=== PATIENT | male | born 1990 | race Caucasian/White ===

== ENCOUNTER 2016-09-28 08:01 | Day surgery (SDC) | payer OTHER ==
[2016-09-22 18:10] VITALS: BMI 34.7
--- NOTE | 2016-09-27 20:11 | PREOP ---
DATE OF ADMISSION: 09/28/2016 DATE OF SURGERY: 09/28/2016 ADMISSION DIAGNOSIS: Chronic tonsillitis, Sydenham's chorea, obstructive sleep apnea syndrome, nasal septal deviation, inferior turbinate hypertrophy. HISTORY OF PRESENT ILLNESS: This 25-year-old male has had nasal obstruction and snoring as well as allergies. He has had witnessed apnea as well as excessive fatigue and nasal obstruction. He wakes tired and is tired in the day. He also has bilateral nasal obstruction which fluctuates, especially with his allergy symptoms. He also has a history of recurrent sore throats. His exam demonstrates deviation of the nasal septum, inferior turbinate hypertrophy right greater than left, as well as moderately enlarged tonsils. More recently he exhibited neurologic symptoms and neurologic evaluation is consistent with Sydenham's chorea. It is strongly felt that tonsillectomy will best treat this condition. He is now admitted for tonsillectomy as well as nasal septoplasty and inferior turbinate surgery. PAST MEDICAL HISTORY: Primary medical doctor is Dr. Leona Mahan. Patient does have a history of asthma as well as allergies and Sydenham's chorea. He does not smoke. ALLERGIES TO MEDICATIONS: None known. Present medications include cetirizine and fluticasone. He has undergone anesthesia in the past without reported problems. EXAMINATION: The patient is a well-developed male in no distress. Head is normal. Eyes are clear. Ears unremarkable. The nose has deviation of the nasal septum. There is moderate inferior turbinate hypertrophy. There is also moderate enlargement of the tonsils. Neck is unremarkable. DATA: Preoperative labs are pending. IMPRESSION: Obstructive sleep apnea syndrome, chronic tonsillitis, Sydenham's chorea, deviation of the septum, and inferior turbinate hypertrophy. PLAN: Tonsillectomy, possible UPPP, nasal septoplasty and submucous resection of inferior turbinates, with overnight observation postoperatively. INFORMED CONSENT: The patient understands the indications, alternatives, nature, risks and benefits of the proposed surgery, potential complications including but not limited to anesthesia, bleeding, infection, recurrence, voice change, nasal regurgitation, numbness, hole in the septum, reduced sense of smell, eye injury or brain injury were discussed in detail. He understands and accepts these risks and wishes to proceed with surgery. Questions are answered fully. MARIANA BATRES M.D. [id number]
[~2016-09-28 08:01] MED LIST: ceFAZolin SODIUM 1 GM VIAL IVPB ONE
[2016-09-28] MEDS ORDERED: LIDOCAINE 1%/EPI 1:100000 (50 ML MULTI DOSE VIAL) ONE (08:29)
[2016-09-28] MEDS ORDERED: COCAINE HCL 4% TOPICAL SOLUTION 4 ML BOTTLE TP ONE ×2 (08:47→09:22)
--- NOTE | 2016-09-28 08:49 | HP ---
History & Physical Update - History History: No Change - Physical Physical: No Change - Assessment Assessment: No Change - Plan Plan: No Change
[2016-09-28] MEDS ORDERED: ACETAMINOPHEN INJECTION 100 ML IVPB ONE (09:03)
[2016-09-28] MEDS ORDERED: ceFAZolin SODIUM 1 GM VIAL IVPB ONE (09:15)
[2016-09-28] MEDS ORDERED: LIDOCAINE 1%/EPI 1:100000 (50 ML MULTI DOSE VIAL) INF ONE ×2 (09:22)
[2016-09-28] MEDS ORDERED: BUPIVACAINE HCL/PF 0.25% (2.5MG/ML) 10 ML VIAL IJ ONE ×2 (10:25)
--- NOTE | 2016-09-28 11:23 | OP ---
Operative Note - Note: Operative Date: 09/28/16 (10211) Pre-Operative Diagnosis: deviated nasal septum, inferior turbinate hypertrophy, chronic tonsillitis, Sydenham's chorea, adenoid hypertrophy (mild) obstructive sleep apnea Operation: nasal septoplasty, right SMR inferior turbinate, left inferior turbinate outfracture and cauterization, destruction of adenoid tissue, tonsillectomy, pharyngoplasty Findings: nasal septal deviation to left, cartilaginous, inferior turbinate hypertrophy right greater than left, mild to moderate adenoid hypertrophy, chronic hypertrophic tonsillitis, right tonsil more embedded with moderate peritonsillar scarring, uvula elongated with mildly bifid tip, significant vertical banding of posterior pharyngeal wall, resolved with pharyngeal sutures. Post-Operative Diagnosis: Same as Pre-op Surgeon: Sundeep Aquino Anesthesiologist/DAM ATTENDANT: Lars Giron Anesthesia: General Specimens Removed: nasal septum, right inferior turbinate, right tonsil, left tonsil. Estimated Blood Loss (mls): 50 Blood Volume Replaced (mls): 0 Fluid Volume Replaced (mls): 700 Operative Report Dictated: Yes
[2016-09-28] MEDS ORDERED: ONDANSETRON 4 MG/2 ML VIAL IVPUSH PRN (11:39)
[2016-09-28] MEDS ORDERED: PROMETHAZINE HCL 25 MG/1 ML VIAL IVPUSH PRN (11:39)
[2016-09-28] MEDS ORDERED: TRIMETHOBENZAMIDE HCL 200MG/2ML INJ IM PRN (11:40)
[2016-09-28] MEDS ORDERED: LACTATED RINGERS SOLUTION 1,000 ML IV SCH (11:45)
[2016-09-28] MEDS ORDERED: morphine CARPU-JECT 4 MG/1 ML DISP.SYRIN IVPB PRN (12:50)
--- NOTE | 2016-09-28 14:06 | OP ---
DATE OF OPERATION: 09/28/2016 PREOPERATIVE DIAGNOSES: Deviated nasal septum, inferior turbinate hypertrophy, chronic tonsillitis, Sydenham chorea, mild adenoid hypertrophy, obstructive sleep apnea. POSTOPERATIVE DIAGNOSES: Deviated nasal septum, inferior turbinate hypertrophy, chronic tonsillitis, Sydenham chorea, mild adenoid hypertrophy, obstructive sleep apnea. PROCEDURE PERFORMED: Nasal septoplasty, submucous resection of right inferior turbinate, left inferior turbinate outfracture and cauterization, destruction of adenoid tissue, tonsillectomy, pharyngoplasty. SURGEON: Mariana Aquino MD ANESTHESIOLOGIST: Lars Giron MD ANESTHESIA: General via endotracheal tube. INDICATIONS: This 26-year-old male has had chronic nasal obstruction as well as witnessed apnea during sleep. He has also had recurrent tonsillitis and has neurologic symptoms which have been determined to represent Sydenham chorea, a consequence of recurrent infections. Examination demonstrates deviation of the septum to the left, inferior turbinate hypertrophy, right greater than left, as well as evidence of chronic tonsillitis and a narrow oropharynx. He is now brought to surgery for treatment. FINDINGS: Deviated septum to the left, primarily cartilaginous; bilateral inferior turbinate hypertrophy, right greater than left; mild adenoid hypertrophy; chronic hypertrophic tonsillitis with narrowing of the pharynx. DESCRIPTION OF PROCEDURE: The patient was brought to the operating room and placed on the operating table in the supine position. General endotracheal anesthesia was induced to a satisfactory level. He was prepped and draped in the usual fashion for surgery. The nose was inspected and deviation of the septum to the left was identified. Lidocaine 1% with epinephrine 1:100,000 was infiltrated into the nasal septum. Cocaine 4% was placed topically on pledgets within the nasal cavities. The pledgets were removed. A right nasal septal incision was created with a 15 blade. A right mucoperichondrial flap was elevated. The bony cartilaginous junction was identified and and limited bilateral mucoperiosteal flaps were elevated. There was an acute angulation of the inferior septum. This was incised with the [place] cartilage knife and the inferior cartilage excised. Additional cartilage was also excised more anteriorly. Limited bone was then removed posteriorly. After these maneuvers, the nasal septum returned to a more midline position. Cartilage was reshaped and then replaced in the pocket and the incision was closed using interrupted 4-0 chromic sutures. A [id number] quilting suture was also placed. The inferior turbinates were then injected with lidocaine 1% with epinephrine 1:100,000. The right inferior turbinate was incised and the bony hypertrophy was identified. This was dissected in a submucous fashion. The remaining turbinate was then cauterized submucosally and the incision was closed with 4-0 chromic. Outfracture was performed more posteriorly. The left inferior turbinate had mild, primarily soft tissue hypertrophy and therapeutic outfracture was performed. Mural cauterization was performed with the suction cautery. After these maneuvers, significantly improved nasal airways were identified and the nasopharynx could be visualized by anterior rhinoscopy bilaterally. Mild adenoid hypertrophy was identified. The suction cautery was passed transnasally on each side and adenoid tissue was destroyed using electrocauterization. This resulted in shrinkage and improvement in the airway bilaterally. Attention was then turned toward the tonsils. The patient's neck was extended. A McIvor mouth gag with a ring blade was inserted and the oropharynx was exposed. Marcaine 0.25% plain was infiltrated in the peritonsillar regions. Chronic hypertrophic tonsillitis was seen. The left tonsil was more prominent. The right tonsil was also enlarged but was deeper in position. The uvula was elongated with a slightly bifid tip. There was no submucous cleft palate. A hypopharyngeal pack was placed. The right tonsil was treated first. An Allis clamp was used to draw the superior pole out of the pocket between the anterior and posterior tonsillar pillars. The mucosa was incised with the Coblation device and the peritonsillar plane entered. Careful Coblation dissection upon the capsule of the tonsil allowed eventual removal of tonsil from its surrounding tissue. Moderate scarring was encountered. Hemostasis was achieved with bipolar cauterization. Attention was then turned to the left tonsil. This was grasped with the Allis clamp. The superior pole was drawn out. The anterior pillar was incised and the peritonsillar plane entered. Coblation dissection upon the capsule of the tonsil allowed easier removal of the left tonsil from its surrounding tissue. Hemostasis was achieved with bipolar cauterization. Both tonsillar fossae were inspected and hemostasis was excellent. There was some vertical banding of the posterior pharyngeal wall related to excessively loose pharyngeal tissue. This was addressed by suturing the tonsillar pillars together utilizing interrupted 2-0 Vicryl sutures. This was performed bilaterally and eliminated the vertical banding. A hypopharyngeal pack was placed. Hemostasis was excellent. Folded Telfa gauze coated with antibiotic ointment and joined anteriorly with heavy silk suture was placed within the nasal cavities. The mouth gag was removed. The patient was then awakened from general anesthesia and transferred to the PACU in stable condition. Estimated blood loss was less than 50 mL. He received crystalloid at the end of the procedure. Specimens included: 1. Nasal septum. 2. Right inferior turbinate tissue. 3. Right tonsil. 4. Left tonsil. These were all sent to Pathology for routine studies. There were no complications. MARIANA AQUINO M.D. [id number]
--- NOTE | 2016-09-28 20:18 | PN ---
Progress Note (short form) - Note Progress Note: ENT Post op check awake alert, taking some liquids has voided, has been OOB ambulating VSS NAD nasal packing in place, no bleeding oropharynx suture lines intact, no bleeding, airway adequate voice hyponasal no stridor or respiratory distress Impression: stable s/p nasal and tonsil surgery DIANA Plan; overnight observation with SaO2 monitoring O2 prn advance diet as tolerated clear to full liquids reassess in AM if no bleeding, then remove packing, assess for discharge in AM Sundeep Aquino MD
[2016-09-28] MEDS: oxyCODONE HCL 5 MG TABLET PO PRN (20:34)
--- NOTE | 2016-09-29 08:12 | PN ---
Progress Note (short form) - Note Progress Note: ENT POD 1 awake alert, taking fluids required analgesia oxycodone tablet x 1 c/o throat pain with swallowing, c/o nasal obstruction overnight had O2 desaturation to 82% on room air rx O2 supplementation VSS NAD eyes WNL nose packing in place, pack removed, no bleeding septum intact, no hematoma, airways patent, improved mouth normal pharynx no bleeding, suture lines intact, uvula edema Impression: s/p tonsillectomy, pharyngoplasty, septoplasty, inferior turbinate surgery, adenoid destruction hx DIANA, Sydenham's chorea O2 desaturation last night, expect improvement after removal of nasal packing Plan: observe, diet and activity as tolerated monitor O2 saturation this morning, including a nap if remains well on room air then OK for discharge when meets discharge criteria ' F/U in office scheduled Sundeep Aquino MD
[2016-09-29] MEDS: oxyCODONE HCL 5 MG TABLET PO PRN (08:56)
[2016-09-29 11:48] VITALS: BP 118/65; PULSE 74; TEMP 98.4
--- NOTE | 2016-09-30 12:52 | PATH ---
Surgical Pathology Report Patient Name: JONATHON ROSS [facility]. Rec. #: [id number] /Age/Gender: 1990 (Age: 26) / M Account: [id number] Location: AMBULATORY SURG Taken: 09/28/2016 Received: 09/28/2016 Reported: 09/30/2016 Physicians: Sundeep Aquino M.D. Specimen(s) Received A: NASAL SEPTUM B: INFERIOR TURBINATE TISSUE RIGHT SIDE C: RIGHT TONSIL D: LEFT TONSIL Clinical History Deviated nasal septum/hypertrophic tonsils Final Diagnosis A. NASAL SEPTUM, SEPTOPLASTY: CARTILAGE WITHOUT SIGNIFICANT PATHOLOGIC CHANGES. B. INFERIOR TURBINATE TISSUE, RIGHT SIDE, RESECTION: FRAGMENTS OF SCLEROTIC APPEARING BONE AND FOCALLY BENIGN SINONASAL MUCOSA. C. TONSIL, RIGHT, TONSILLECTOMY: BENIGN TONSIL WITH FOLLICULAR LYMPHOID HYPERPLASIA AND COLONIZATION WITH MICROORGANISMS MORPHOLOGICALLY CONSISTENT WITH ACTINOMYCES SPECIES. D. TONSIL, LEFT, TONSILLECTOMY: BENIGN TONSIL WITH FOLLICULAR LYMPHOID HYPERPLASIA AND COLONIZATION WITH MICROORGANISMS MORPHOLOGICALLY CONSISTENT WITH ACTINOMYCES SPECIES. Electronically Signed Manav Alexander M.D. Gross Description A. Received in formalin, labeled "nasal septum" is a 1.8 x 1.4 x 0.2 cm aggregate of martin, irregular portions of cartilage and possible bone. The specimen is entirely submitted in one cassette, following decalcification. B. Received in formalin, labeled "inferior turbinate tissue right side" are 2 martin-brown, irregular portions of possible bone measuring 0.7 x 0.4 x 0.1 cm in aggregate. The specimen is submitted in toto in one cassette, following decalcification. C. Received in formalin, labeled "right tonsil" is a 3.5 x 1.3 x 1.2 cm martin-pink, irregular portion of soft tissue, consistent with a tonsil. The outer surface is martin-pink and focally hemorrhagic. Sectioning reveals martin-pink parenchyma with cryptic architecture. No discrete lesions are identified. Data Integrity Analyst sections are submitted in one cassette. D. Received in formalin, labeled "left tonsil" is a 2.8 x 1.6 x 1.4 cm ovoid portion of soft tissue, consistent with a tonsil. The outer surface is martin pink, convoluted and varies from smooth to cauterized. Sectioning reveals a homogeneous martin-pink, smooth parenchyma with cryptic architecture. No discrete lesions are identified. Data Integrity Analyst sections are submitted in one cassette. DL09/28/2016 saudi09/28/2016
== END 2016-09-29 13:49 | disposition home or self-care (01) ==
LOC: JASUSAT 08:01 → JASU-SURG 08:01 → J4S 16:41 → JASUSAT 09-29 13:49
PROVIDERS: ATTEND Otolaryngology
PROC: 0CQ Mouth and Throat, Repair (ICD-10-PCS; 2016-09-28)
PROC: 09SL7ZZ Reposition Nasal Turbinate, Via Natural or Artificial Opening (ICD-10-PCS; 2016-09-28)
PROC: 095L7ZZ Destruction of Nasal Turbinate, Via Natural or Artificial Opening (ICD-10-PCS; 2016-09-28)
PROC: 09SM0ZZ Reposition Nasal Septum, Open Approach (ICD-10-PCS; principal; 2016-09-28 09:00)
PROC: 0C5PXZZ Destruction of Tonsils, External Approach (ICD-10-PCS; 2016-09-28 09:00)
PROC: 0C5QXZZ Destruction of Adenoids, External Approach (ICD-10-PCS; 2016-09-28 09:00)
DX: J34.2 Deviated nasal septum (principal); J35.03 Chronic tonsillitis and adenoiditis; J34.3 Hypertrophy of nasal turbinates; G47.33 Obstructive sleep apnea (adult) (pediatric); I02.9 Rheumatic chorea without heart involvement
CPT/HCPCS: 88302-TC; 88304-TC; 88311-TC; 94760